=== PATIENT | male | born 1975 | race Caucasian/White ===

== ENCOUNTER 2018-06-11 12:50 | Emergency (ER) | payer MEDICAID, OTHER ==
[~2018-06-11] VITALS: Ht 180.3 cm; Wt 85.7 kg
[~2018-06-11 12:50] MED LIST: ALBUTEROL SULF8.5 GM INH; ANAFRANIL25 MG ORAL; AZITHROMYCIN250 MG ORAL; CIPROFLOXACIN250 MG PO; CLINDAMYCIN HC300 MG ORAL; COLACE250 MG ORAL; DEPAKOTE ER250 MG ORAL; DEPAKOTE ER500 MG ORAL; KLONOPIN0.5 MG ORAL; MULTIVITAMINS1 EA14 PO; SEROQUEL XR200 MG ORAL; SEROQUEL XR400 MG ORAL; TEGRETOL200 MG PO; THORAZINE10 MG PO
[2018-06-11] MEDS ORDERED: DOXYCYCLINE HYC50 M2 PO (13:36)
--- NOTE | 2018-06-11 13:37 | Emergency Room Report ---
History of Present Illness General Chief Complaint: Male Urogenital Problems Source: Patient, Medical Record, Caregiver Present Illness HPI Patient is a 43-year-old male with history of seizures and Down syndrome who presents today with complaints of dysuria and penile discharge. Patient states the symptoms began 2 days ago and have been worsening. Complaining of mild dysuria as well. Patient states he is sexually active. He denies any abdominal pain, nausea, vomiting, fever, chills or associated symptoms. Allergies: Coded Allergies: ASPIRIN (Verified Allergy, 12/23/13) CEPHALEXIN (Verified Allergy, 12/23/13) ERYTHROMYCIN BASE (Verified Allergy, 12/23/13) PENICILLINS (Verified Allergy, 12/23/13) SULFAMETHOXAZOLE (Verified Allergy, 12/23/13) TRIMETHOPRIM (Verified Allergy, 12/23/13) Patient History Reviewed Nursing Documentation: PMH: Agreed; PSxH: Agreed Nursing Documentation-PM Past Medical History: No History, Except For Hx Neurological Problems: Yes - AUTISM Hx Seizures: Yes Review of Systems Genitourinary: Reports: discharge, dysuria, hematuria All Other Systems: negative except mentioned in HPI Physical Exam Vital Signs Date Time Temp Pulse Resp B/P (MAP) Pulse Ox O2 Delivery O2 Flow Rate FiO2 06/11/18 13:12 97.6 111 20 113/72 96 Room Air 97.5 Sp02 EP Interpretation: reviewed, normal General Appearance: no apparent distress, alert, GCS 15, non-toxic Head: normocephalic, atraumatic Eyes: bilateral eye normal inspection, bilateral eye PERRL ENT: hearing grossly normal, normal pharynx, no angioedema, normal voice Neck: full range of motion, supple/symm/no masses Respiratory: chest non-tender, lungs clear, normal breath sounds, speaking full sentences Cardiovascular #1: regular rate, rhythm, no edema Cardiovascular #2: 2+ carotid (R), 2+ carotid (L), 2+ radial (R), 2+ radial (L) , 2+ dorsalis pedis (R), 2+ dorsalis pedis (L) Gastrointestinal: normal bowel sounds, non tender, soft, non-distended, no guarding, no rebound Rectal: deferred Genitourinary: normal inspection, no CVA tenderness, other - normal external genitalia, no lacerations. Yellowish discharge noted. Musculoskeletal: back normal, gait/station normal, normal range of motion, non- tender, calf tenderness Neurologic: alert, oriented x3, responsive, motor strength/tone normal, sensory intact, speech normal Psychiatric: judgement/insight normal, memory normal, mood/affect normal, no suicidal/homicidal ideation Reflexes: 3+ bicep (R), 3+ bicep (L), 3+ tricep (R), 3+ tricep (L), 3+ knee (R) , 3+ knee (L) Skin: normal color, no rash, warm/dry, well hydrated Lymphatic: no adenopathy Medical Decision Making PA Attestation My supervising physician Dr. Davis Reaction to Intervention: Improved Diagnostic Impression: Primary Impression: Abnormal penile discharge, with blood ER Course Will treat patient empirically with antibiotics. Given extensive allergies, patient will be discharged home with doxycycline. Labs considered benign indicated at this time. Patient has no abdominal tenderness to palpation and vitals are within normal limits. Instructed to follow up with PCP for repeat testing. Caregivers. Reliable and agreeable with plan. Last Vital Signs Date Time Temp Pulse Resp B/P (MAP) Pulse Ox O2 Delivery O2 Flow Rate FiO2 06/11/18 13:12 97.6 111 20 113/72 96 Room Air 97.5 Status: improved Disposition: HOME, SELF-CARE Condition: Stable Scripts Doxycycline Hyclate (Doxycycline Hyclate) 50 Mg Tablet 100 MG PO BID for 7 Days, #14 TAB Prov: Angie Henderson 06/11/18 Patient Instructions: Urethritis, Adult Angie Henderson Jun 11, 2018 13:37
[2018-06-11 13:55] VITALS: BP 113/72
[2018-06-11 13:58] VITALS: BP 113/72
== END 2018-06-11 14:00 | disposition home or self-care (01) ==
LOC: EMR 13:50
DX: R36.9 Urethral discharge, unspecified (principal); Z88.6 Allergy status to analgesic agent; Z88.1 Allergy status to other antibiotic agents; Z88.0 Allergy status to penicillin; Z88.2 Allergy status to sulfonamides; Q90.9 Down syndrome, unspecified
CPT/HCPCS: 99283

== ENCOUNTER 2019-06-19 12:00 | Emergency (ER) | payer OTHER ==
[~2019-06-19] VITALS: Ht 177.8 cm; Wt 86.2 kg
[~2019-06-19 12:00] MED LIST changes: +DOXYCYCLINE HYC50 M2 PO
[2019-06-19 12:04] VITALS: BP 114/74
--- NOTE | 2019-06-19 12:10 | NUR ---
ED Nurse Note: Patient brought into ED by caregiver due to rash/abscess on the right under armpit. per caregiver, it's been there for 2 days. caregivers by the bedside.
[2019-06-19] MEDS ORDERED: DOXYCYCLINE HY100 M2 PO (12:31)
--- NOTE | 2019-06-19 12:31 | Emergency Room Report ---
History of Present Illness General Chief Complaint: Skin Rash/Abscess Source: Caregiver Present Illness HPI 44-year-old male with unknown history of psychiatric disorder presenting with his caregiver complaining of inflammation of an erythematous mass his right armpit x1 week. Patient is nonverbal and does not express any pain to the affected area. Hidradenitis suppurativa of the right arm. Is very prominent unable to decide whether there is any tract formation. Patient has multidrug allergies. Denies fever and chills, chest pain, short of breath, nausea vomiting. Patient stable and compliant. Allergies: Coded Allergies: ASPIRIN (Verified Allergy, 12/23/13) CEPHALEXIN (Verified Allergy, 12/23/13) ERYTHROMYCIN BASE (Verified Allergy, 12/23/13) PENICILLINS (Verified Allergy, 12/23/13) SULFAMETHOXAZOLE (Verified Allergy, 12/23/13) TRIMETHOPRIM (Verified Allergy, 12/23/13) Patient History Past Medical History: see triage record Past Surgical History: unable to obtain Pertinent Family History: none Immunizations: UTD Reviewed Nursing Documentation: PMH: Agreed; PSxH: Agreed Nursing Documentation-PMH Hx Neurological Problems: Yes - AUTISM Hx Seizures: Yes Review of Systems All Other Systems: negative except mentioned in HPI Physical Exam Vital Signs Date Time Temp Pulse Resp B/P (MAP) Pulse Ox O2 Delivery O2 Flow Rate FiO2 06/19/19 12:04 97.5 99 19 114/74 (87) 96 Room Air Sp02 EP Interpretation: reviewed, normal General Appearance: normal inspection, well appearing, no apparent distress, alert Head: normocephalic, atraumatic Eyes: bilateral eye normal inspection, bilateral eye PERRL ENT: normal ENT inspection, hearing grossly normal, normal pharynx Neck: normal inspection, full range of motion, supple Respiratory: normal inspection, chest non-tender, lungs clear, no rhonchi Cardiovascular #1: normal inspection, normal peripheral pulses, regular rate, rhythm, no gallop, no murmur Gastrointestinal: normal inspection, non tender, soft Rectal: deferred Genitourinary: no CVA tenderness Neurologic: normal inspection, alert, oriented x3 Psychiatric: normal inspection, judgement/insight normal Skin: palpation normal, other - Hydroadenitis suppurativa of right armpit Lymphatic: axilla node tender (R) Medical Decision Making PA Attestation All my diagnosis and treatment plans were reviewed ad discussed with my supervising physician Dr. Simms Diagnostic Impression: Primary Impression: Hidradenitis suppurativa ER Course 44-year-old male with unknown history of psychiatric disorder presenting with his caregiver complaining of inflammation of an erythematous mass his right armpit x1 week. Patient is nonverbal and does not express any pain to the affected area. Hidradenitis suppurativa of the right arm. Is very prominent unable to decide whether there is any tract formation. Patient has multidrug allergies. Denies fever and chills, chest pain, short of breath, nausea vomiting. Patient stable and compliant. Ddx considered but are not limited to : Cellulitis, superficial abscess, hidradenitis suppurativa Vital signs: are WNL, pt. is afebrile H&PE are most consistent with: Hidradenitis suppurativa ORDERS: Doxycycline ED INTERVENTIONS: None required at this time. DISCHARGE: At this time pt. is stable for d/c to home. Will provide printed patient care instructions, and any necessary prescriptions. Care plan and follow up instructions have been discussed with the patient prior to discharge. I explained to the patient's caregiver that patient needs to be followed up with general surgeon for drainage of the hidradenitis suppurativa due to tract formation patient stable at time of discharge. Last Vital Signs Date Time Temp Pulse Resp B/P (MAP) Pulse Ox O2 Delivery O2 Flow Rate FiO2 06/19/19 12:04 97.5 99 19 114/74 96 Room Air Disposition: HOME, SELF-CARE Condition: Stable Scripts Doxycycline Hyclate (DOXYCYCLINE HYCLATE) 100 Mg Capsule 100 MG PO BID for 10 Days, #20 CAP Prov: Yehuda Raya 06/19/19 Referrals: [facility],REFERRING (PCP) Patient Instructions: Abscess Additional Instructions: Take medication as directed follow-up with your primary care provider for referral to a general surgeon for drainage of your abscess. The fever and chills and worsening symptoms return to the emergency room. Yehuda Raya Jun 19, 2019 12:31
[2019-06-19 12:38] VITALS: BP 114/74
--- NOTE | 2019-06-19 12:38 | NUR ---
ER DISCHARGE NOTE: Patient is cleared to be discharged per SW[employer]NIL RITTER pt is aox4, on room air, with stable vital signs. pt was given dc and prescription instructions, pt was able to verbalize understanding, pt id band removed without complications. pt is able to ambulate with steady gait. pt took all belongings.
== END 2019-06-19 12:38 | disposition home or self-care (01) ==
LOC: EMR 12:18
DX: L73.2 Hidradenitis suppurativa (principal); F84.0 Autistic disorder; G40.909 Epilepsy, unspecified, not intractable, without status epilepticus; Z88.6 Allergy status to analgesic agent; Z88.0 Allergy status to penicillin; Z88.2 Allergy status to sulfonamides
CPT/HCPCS: 99282

== ENCOUNTER 2020-01-14 10:39 | Emergency (ER) | payer OTHER ==
[~2020-01-14] VITALS: Ht 182.9 cm; Wt 72.6 kg
[~2020-01-14 10:39] MED LIST changes: +DOXYCYCLINE HY100 M2 PO
--- NOTE | 2020-01-14 10:50 | NUR ---
ED Nurse Note: Pt ambulated to ed c/o constipation for a few weeks per caregiver. Pt reports feeling of generalized body shaking since yesterday. ERMD on bedside.
[2020-01-14 10:51] VITALS: BP 112/77
[2020-01-14] MEDS ORDERED: MIRALAX17 G2 ORAL (10:55)
--- NOTE | 2020-01-14 10:55 | Emergency Room Report ---
History of Present Illness General Chief Complaint: Constipation Source: Patient Present Illness HPI 44-year-old male history of special needs presents with constipation x3 weeks, patient has not been seen by faculty to be defecating, history is limited due to patient's mental capacity, no known aggravating relieving factors severity is mild, constant, patient presents for evaluation Allergies: Coded Allergies: ASPIRIN (Verified Allergy, 12/23/13) CEPHALEXIN (Verified Allergy, 12/23/13) ERYTHROMYCIN BASE (Verified Allergy, 12/23/13) PENICILLINS (Verified Allergy, 12/23/13) SULFAMETHOXAZOLE (Verified Allergy, 12/23/13) TRIMETHOPRIM (Verified Allergy, 12/23/13) Patient History Past Medical History: see triage record Reviewed Nursing Documentation: PMH: Agreed; PSxH: Agreed Nursing Documentation-PMH Past Medical History: No Stated History Hx Neurological Problems: Yes - AUTISM Hx Seizures: Yes Review of Systems All Other Systems: limited - Psychiatric illness Physical Exam Vital Signs Date Time Temp Pulse Resp B/P (MAP) Pulse Ox O2 Delivery O2 Flow Rate FiO2 01/14/20 10:43 97.3 101 16 112/77 (89) 95 Room Air Sp02 EP Interpretation: reviewed, normal General Appearance: well appearing, no apparent distress, alert Head: normocephalic, atraumatic Eyes: bilateral eye PERRL, bilateral eye EOMI ENT: uvula midline, moist mucus membranes Neck: supple, thyroid normal, supple/symm/no masses Respiratory: lungs clear, no respiratory distress, no retraction, no accessory muscle use Cardiovascular #1: normal peripheral pulses, regular rate, rhythm, no edema, no gallop, no murmur Gastrointestinal: non tender, soft, no guarding, no rebound Musculoskeletal: normal inspection Neurologic: alert, responsive Psychiatric: mood/affect normal Skin: no rash, warm/dry Medical Decision Making Diagnostic Impression: Primary Impression: Constipation Qualified Codes: K59.00 - Constipation, unspecified ER Course 44-year-old male presents with constipation differential diagnosis includes obstructing mass, constipation, abdominal pain Will obtain CT scan, currently patient's abdomen soft nontender no rebound no guarding We will provide patient with a bowel regimen if CT scan is negative Disposition back to snf CT/MRI/US Diagnostic Results CT/MRI/US Diagnostic Results : Impression Procedure: CT Abdomen Pelvis WO Contrast Indication: Abdominal pain, constipation for 3 weeks Technique: Spiral acquisitions obtained through the abdomen and pelvis. No oral contrast utilized, per emergency room physician request No IV contrast utilized , per referring physician request.. Multiplanar reconstructions were generated. Total dose length product 344 mGycm. CTDIvol(s) 6 mGy. Dose reduction achieved using automated exposure control Comparison: None Findings: The lack of enteric contrast limits assessment of the GI tract. Mild mild amount of retained stool is seen in the proximal colon. The colon is nondistended. The appendix is not definitely visualized, but there are no findings to suggest acute appendicitis. There are a few colonic diverticula. No evidence of diverticulitis. No small bowel distention. No free or loculated intraperitoneal gas or fluid is evident. The distal esophagus, stomach, duodenum are unremarkable. The liver, gallbladder, bile ducts, pancreas are unremarkable. The spleen demonstrates a low-attenuation lesion in the upper pole which is just higher than fluid attenuation. The adrenals are unremarkable. No renal parenchymal abnormality. No renal or ureteral calculi, hydronephrosis, or hydroureter demonstrated. The bladder is somewhat distended. No pelvic mass or adenopathy. No retroperitoneal or mesenteric mass or adenopathy. Dependent atelectatic changes are seen at the lung bases. The bones demonstrate degenerative spondylosis changes of the lumbosacral junction. There are bilateral L5 pars defects, minimal L5 on S1 spondylolisthesis and secondary degenerative change. Impression: Limited assessment of the GI tract, due to lack of enteric contrast administration No definite acute abnormality Mild colonic fecal retention Low-attenuation lesion in the upper pole of the spleen, slightly higher than fluid attenuation. Consider ultrasound or contrast CT for better characterization Colonic diverticulosis. No evidence of diverticulitis Bilateral L5 spondylolysis, minimal grade 1 L5 on S1 spondylolisthesis, and secondary degenerative change Nonvisualized appendix The CT scanner at [facility] is accredited by the [employer] and the scans are performed using protocols designed to limit radiation exposure to as low as reasonably achievable to attain images of sufficient resolution adequate for diagnostic evaluation. Dictated By: Juanito Lo MD Electronically Signed By: Juanito Lo MD Signed Date/Time 01/14/20 9928 CC: Rene Woodward MD Last Vital Signs Date Time Temp Pulse Resp B/P (MAP) Pulse Ox O2 Delivery O2 Flow Rate FiO2 01/14/20 10:51 97.3 75 16 112/77 95 Room Air Disposition: HOME, SELF-CARE Condition: Stable Scripts Polyethylene Glycol 3350* (MIRALAX*) 17 Gm Powd.pack 17 GM ORAL DAILY, #90 PACKET Prov: Rene Woodward MD 01/14/20 Referrals: [facility] Patient Instructions: Constipation, Adult Additional Instructions: The patient was provided with discharge instructions, notified to follow-up with a primary care doctor and or specialist in the next 24-48 hours, and to return to the ED if they have worsening of their symptoms. Please note that this report is being documented using travaylON technology. This can lead to erroneous entry secondary to incorrect interpretation by the dictating instrument. Rene Woodward MD Jan 14, 2020 10:55
--- NOTE | 2020-01-14 11:33 | NUR ---
ED Nurse Note: Called CT for follow-up.
--- NOTE | 2020-01-14 13:27 | Diagnostic Imaging Report ---
Indication: Abdominal pain, constipation for 3 weeks Technique: Spiral acquisitions obtained through the abdomen and pelvis. No oral contrast utilized, per emergency room physician request No IV contrast utilized, per referring physician request.. Multiplanar reconstructions were generated. Total dose length product 344 mGycm. CTDIvol(s) 6 mGy. Dose reduction achieved using automated exposure control Comparison: None Findings: The lack of enteric contrast limits assessment of the GI tract. Mild mild amount of retained stool is seen in the proximal colon. The colon is nondistended. The appendix is not definitely visualized, but there are no findings to suggest acute appendicitis. There are a few colonic diverticula. No evidence of diverticulitis. No small bowel distention. No free or loculated intraperitoneal gas or fluid is evident. The distal esophagus, stomach, duodenum are unremarkable. The liver, gallbladder, bile ducts, pancreas are unremarkable. The spleen demonstrates a low-attenuation lesion in the upper pole which is just higher than fluid attenuation. The adrenals are unremarkable. No renal parenchymal abnormality. No renal or ureteral calculi, hydronephrosis, or hydroureter demonstrated. The bladder is somewhat distended. No pelvic mass or adenopathy. No retroperitoneal or mesenteric mass or adenopathy. Dependent atelectatic changes are seen at the lung bases. The bones demonstrate degenerative spondylosis changes of the lumbosacral junction. There are bilateral L5 pars defects, minimal L5 on S1 spondylolisthesis and secondary degenerative change. Impression: Limited assessment of the GI tract, due to lack of enteric contrast administration No definite acute abnormality Mild colonic fecal retention Low-attenuation lesion in the upper pole of the spleen, slightly higher than fluid attenuation. Consider ultrasound or contrast CT for better characterization Colonic diverticulosis. No evidence of diverticulitis Bilateral L5 spondylolysis, minimal grade 1 L5 on S1 spondylolisthesis, and secondary degenerative change Nonvisualized appendix The CT scanner at [facility] is accredited by the [employer] and the scans are performed using protocols designed to limit radiation exposure to as low as reasonably achievable to attain images of sufficient resolution adequate for diagnostic evaluation.
[2020-01-14 13:55] VITALS: BP 114/78
--- NOTE | 2020-01-14 13:55 | NUR ---
ER DISCHARGE NOTE: Patient is cleared to be discharged per ERMD, pt is aox4, on room air, with stable vital signs. pt was given dc and prescription instructions, pt was able to verbalize understanding, pt id band removed. pt is able to ambulate with steady gait. pt left ed accompanied by primary senior care specialist
== END 2020-01-14 13:55 | disposition home or self-care (01) ==
LOC: EMR 10:48
DX: K59.00 Constipation, unspecified (principal); Z88.6 Allergy status to analgesic agent; Z88.0 Allergy status to penicillin; F84.0 Autistic disorder; G40.909 Epilepsy, unspecified, not intractable, without status epilepticus
CPT/HCPCS: 74176; Z7502; 99284